=== PATIENT | male | born 1985 | race Two or more races ===

== ENCOUNTER 2024-06-07 06:02 | Emergency (ER) | payer MEDICAID, SELFPAY ==
[2024-06-07 06:04] VITALS: PULSE 89; RESP 19; O2SAT 98
[2024-06-07 06:09] VITALS: BP 131/75; PULSE 73; RESP 19; TEMP 36.4; O2SAT 100; BMI 22.9
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
[2024-06-07] MEDS: IBUPROFEN TAB 400 MG TABLET 800 MG PO (06:27)
[2024-06-07 07:01] VITALS: RESP 18
== END 2024-06-07 07:01 | disposition home or self-care (01) ==
PROVIDERS: Emergency Provider Emergency Medicine
DX: J11.1 Influenza due to unidentified influenza virus with other respiratory manifestations (principal); F17.210 Nicotine dependence, cigarettes, uncomplicated
CPT/HCPCS: 87400; 99283; A9270